=== PATIENT | male | born 2005 | race Caucasian/White ===

== ENCOUNTER 2023-12-12 11:49 | Emergency (ER) | payer SELFPAY ==
[2023-12-12] MEDS ORDERED: Acetaminophen 500 MG TAB ONE (12:04)
[2023-12-12] MEDS ORDERED: Bicillin LA 1.2 MILLION UNITS/2 ML SYRINGE ONE (12:54)
== END 2023-12-12 13:17 | disposition home or self-care (01) ==
LOC: NAV ERS 11:49
DX: J02.0 Streptococcal pharyngitis (principal); F17.210 Nicotine dependence, cigarettes, uncomplicated
CPT/HCPCS: 87430; 96372; 99283; J0561